=== PATIENT | male | born 1990 | race American Indian/Alaskan Native ===

== ENCOUNTER 2017-04-22 05:53 | Emergency (ER) | payer OTHER ==
[2017-04-22 06:54] LABS: Bilirubin,Urine NEG (Negative); Blood,Urine NEG (Negative); Ketones,Urine NEG (Negative); Leukocyte Esterase,Urine NEG (Negative); Mucus,Urine 1+ /HPF; Nitrite,Urine NEG (Negative); Protein,Urine <15 mg/dL mg/dL (Negative); Urobilinogen,Urine < 2.0 mg/dL (<2.0)
[2017-04-22] MEDS ORDERED: ZITHROMAX PO ONE (11:05)
[2017-04-22] MEDS ORDERED: FLAGYL PO ONE (11:05)
[2017-04-22] MEDS ORDERED: ROCEPHIN IM ONE (11:05)
[2017-04-22] MEDS ORDERED: XYLOCAINE 1% MPF 5 mL INFILTRATI ONE (11:05)
--- NOTE | 2017-04-22 11:06 | Emergency Department Report ---
Entered by MARGUERITE ADAMES, acting as scribe for MARBIN PARMAR PA. ED Male HPI - General Chief complaint: Urogenital-Male Stated complaint: BACK AND SIDE PAIN Time Seen by Provider: 04/22/17 10:25 Source: patient Mode of arrival: Ambulatory Limitations: No Limitations - History of Present Illness Initial comments: 27 y/o male presents to the ED c/o dysuria x 3 days. Associated symptoms include left lower back pain but he denies discharge, fever and chills. Pain is described as sharp and 8/10 on a severity scale. Patient states possible STD. No alleviating or aggravating factors. NKDA. Denies any penile rash patient said he had sexual activity with his baby mama and after he had sexual encounter he started having burning. He is here to be treated for STD. Denies any abdominal pain. Denies any urinary frequency urgency or burning. MD Complaint: dysuria Onset/Timin -: days(s) Location: abdomen (left lower back) Radiation: none Severity: severe Severity scale (0 -10): 8 Quality: sharp Consistency: constant Improves with: none Worsens with: none dysuria, other (left lower back pain, no ferver, no chills). denies: discharge , swelling, mass, rash, urinary retention, blood in urine, fever, nausea/ vomiting, incontinence - Related Data Sexually active: Yes Allergies Allergy/AdvReac Type Severity Reaction Status Date / Time No Known Allergies Allergy Verified 04/22/17 05:57 ED Review of Systems Comment: All other systems reviewed and negative Constitutional: denies: chills, fever ENT: denies: ear pain, throat pain, congestion Respiratory: no symptoms reported Cardiovascular: denies: chest pain, palpitations, edema, syncope Gastrointestinal: denies: abdominal pain, nausea, vomiting, diarrhea, constipation, hematemesis, hematochezia Genitourinary: dysuria. denies: urgency, frequency, hematuria, discharge, testicular pain, testicular mass Musculoskeletal: back pain (left lower back). denies: joint swelling, arthralgia, myalgia Skin: denies: rash Neurological: denies: headache, weakness, numbness, paresthesias, confusion, abnormal gait, vertigo ED Past Medical Hx - Past Medical History Previous Medical History?: No - Surgical History Past Surgical History?: No - Family History Family history: no significant - Social History Smoking Status: Current Every Day Smoker Substance Use Type: Alcohol ED Physical Exam - General Limitations: No Limitations General appearance: alert, in no apparent distress - Head Head exam: Present: atraumatic, normocephalic, normal inspection - Eye Eye exam: Present: normal appearance, PERRL, EOMI Pupils: Present: normal accommodation - ENT ENT exam: Present: normal exam, normal orophraynx, mucous membranes moist, TM's normal bilaterally, normal external ear exam - Neck Neck exam: Present: normal inspection, full ROM. Absent: tenderness, meningismus, lymphadenopathy - Respiratory Respiratory exam: Present: normal lung sounds bilaterally. Absent: respiratory distress, chest wall tenderness - Cardiovascular Cardiovascular Exam: Present: regular rate, normal rhythm, normal heart sounds - GI/Abdominal GI/Abdominal exam: Present: soft, normal bowel sounds. Absent: tenderness, guarding, rebound - exam: Present: normal inspection. Absent: testicular tenderness, urethral discharge, scrotal swelling, vertical testicular lie External exam: Present: normal external exam. Absent: erythema, swelling, lesions, lacerations, ecchymosis, bleeding - Extremities Exam Extremities exam: Present: normal inspection, full ROM. Absent: tenderness, normal capillary refill, pedal edema, joint swelling, calf tenderness - Back Exam Back exam: Present: normal inspection, full ROM. Absent: tenderness - Neurological Exam Neurological exam: Present: alert, oriented X3 - Psychiatric Psychiatric exam: Present: normal affect, normal mood - Skin Skin exam: Present: warm, dry, intact, normal color. Absent: rash ED Course Vital Signs 04/22/17 05:57 Temperature 98.3 F Pulse Rate 83 Respiratory 18 Rate Blood Pressure 138/87 O2 Sat by Pulse 99 Oximetry ED Medical Decision Making - Lab Data Lab Results 04/22/17 Range/Units 06:19 Urine Color Yellow (Yellow) Urine Turbidity Clear (Clear) Urine pH 6.0 (5.0-7.0) Ur Specific [place] 1.020 (1.003-1.030) Urine Protein <15 mg/dl (Negative) mg/dL Urine Glucose (UA) Neg (Negative) mg/dL Urine Ketones Neg (Negative) mg/dL Urine Blood Neg (Negative) Urine Nitrite Neg (Negative) Urine Bilirubin Neg (Negative) Urine Urobilinogen < 2.0 (<2.0) mg/dL Ur Leukocyte Esterase Neg (Negative) Urine WBC (Auto) 2.0 (0.0-6.0) /HPF Urine RBC (Auto) 6.0 (0.0-6.0) /HPF Urine Mucus 1+ /HPF - Medical Decision Making ED course: Patient here after he said he had sexual activity with his significant other and started having urinary burning. He is not having any discharge but he said he sure he has a STD. Pain is lower back pain and urinalysis was negative for any bacterial infection. This was communicated to patient. He is insistent having treatment for STD therefore patient given Rocephin 250 mg IM, Zithromax 1 g by mouth and Flagyl 2 g by mouth in emergency room .this will cover gonorrhea, Chlamydia and Trichomonas. I discussed this patient that he needs to follow-up with health Department and 7-10 days for follow-up STD check. Gonorrhea and chlamydia is pending. Patient discharged home in stable condition ED Disposition Clinical Impression: Concern about STD in male without diagnosis, Dysuria Disposition: DC-01 TO HOME OR SELFCARE Is pt being admited?: No Does the pt Need Aspirin: No Condition: Stable Instructions: Safe Sex (ED), Sexually Transmitted Diseases (ED), Dysuria (ED) Additional Instructions: Please practice safe sex Did not drink for 7 days as medication given to treat STD can react with I'll call negatively. Refrain from having sexual activity for over the next 2 weeks. [facility] Forms: Work/School Release Form(ED) This documentation as recorded by the ROSANGELA simmons ELIZABETH,accurately reflects the service I personally performed and the decisions made by me,MARBIN PARMAR PA.
[2017-04-22 11:35] VITALS: BP 129/87
== END 2017-04-22 11:34 | disposition home or self-care (01) ==
LOC: ED 05:53
DX: R30.0 Dysuria (principal); F17.200 Nicotine dependence, unspecified, uncomplicated
CPT/HCPCS: 81001; 96372; 99283; J0696